=== PATIENT | female | born 1980 | race Caucasian/White ===

== ENCOUNTER 2016-10-10 06:43 | Inpatient (IN) | payer OTHER ==
[~2016-10-10] VITALS: Ht 182.9 cm; Wt 61.2 kg
[~2016-10-10 06:43] MED LIST: PREN1TAB80 PO; TYL3 PO
[2016-10-10] MEDS ORDERED: RINGERS SOLUTION,LACTATED 1,000 ML IV PRN (07:04)
[2016-10-10] MEDS ORDERED: RINGERS SOLUTION,LACTATED 1,000 ML IV SCH (07:04)
[2016-10-10] MEDS ORDERED: OXYTOCIN 30 UNITS/LACT RINGERS 500 ML IV ONE (07:04)
[2016-10-10] MEDS ORDERED: MORPHINE SULFATE/PF 0.5 MG/ML 10 ML AMP ONE (07:11)
[2016-10-10] MEDS ORDERED: MIDAZOLAM HCL 2 MG/2 ML VIAL ONE (07:12)
[2016-10-10] MEDS ORDERED: GUM MASTIC/STORAX/MSAL/ALCOHOL LIQUID 0.67 ML VIAL TP ONE (07:12)
[2016-10-10] MEDS ORDERED: FentaNYL CITRATE-PF 100 MCG/2 ML VIAL ONE (07:12)
[2016-10-10] MEDS ORDERED: METOCLOPRAMIDE HCL 5 MG/ML 2 ML VIAL IVP PRN (07:15)
[2016-10-10] MEDS ORDERED: CITRIC ACID/SODIUM CITRATE 30 ML SOLUTION UDCUP PO PRN (07:15)
[2016-10-10 07:19] VITALS: BP 116/72
[2016-10-10 07:36] LABS: BASOPHILS % (AUTO) 0.3 % (0.0-2.0); EOSINOPHILS % (AUTO) 0.5 % (1.0-6.0); HEMATOCRIT 40.6 % (36-46); HEMOGLOBIN 13.3 g/dL (12.0-16.0); LYMPHOCYTES % (AUTO) 20.7 % (22.0-44.0); MEAN CORPUSCULAR HEMOGLOBIN 29.9 pg (26.0-34.0); MEAN CORPUSCULAR HGB CONC 32.7 G/dL (31.0-37.0); MEAN CORPUSCULAR VOLUME 91 fL (80-100); MONOCYTES # (AUTO) 0.8 K/uL (0.1-1.0); MONOCYTES % (AUTO) 7.9 % (2.0-9.0); NEUTROPHILS # (AUTO) 6.8 K/uL (1.8-7.7); NEUTROPHILS % (AUTO) 70.6 % (40.0-70.0); RED BLOOD CELL COUNT(AUTO) 4.44 MIL/uL (4.00-5.20); RED CELL DISTRIBUTION WIDTH 14.3 % (11.5-14.5); WHITE BLOOD COUNT (AUTO) 9.6 K/uL (4.5-11.0)
[2016-10-10] MEDS: OXYGEN THERAPY IH SCH (08:00)
[2016-10-10] MEDS ORDERED: TRIAMCINOLONE ACETONIDE 40 MG/ML VIAL ONE (08:15)
[2016-10-10] MEDS ORDERED: FentaNYL CITRATE-PF 100 MCG/2 ML VIAL IVP PRN ×2 (08:45→09:00)
[2016-10-10] MEDS ORDERED: OXYGEN THERAPY IH SCH ×2 (08:45→09:00)
[2016-10-10] MEDS ORDERED: MORPHINE SULFATE 2 MG/ML SYRINGE IVP PRN (08:45)
[2016-10-10] MEDS ORDERED: DiphenhydrAMINE HCL 50 MG/ML VIAL IVP PRN ×2 (08:45→09:00)
[2016-10-10] MEDS ORDERED: ONDANSETRON HCL 4 MG/2 ML VIAL IVP PRN ×2 (08:45→09:00)
[2016-10-10] MEDS ORDERED: MORPHINE SULFATE 4 MG/ML SYRINGE IVP PRN (09:00)
[2016-10-10] MEDS ORDERED: OxyCODONE HCL/ACETAMINOPHEN 5-325 MG TABLET PO PRN ×2 (09:15)
[2016-10-10] MEDS ORDERED: METHYLERGONOVINE MALEATE 0.2 MG TABLET PO PRN (09:15)
[2016-10-10] MEDS ORDERED: LANOLIN 7 GM OINTMENT TP PRN (09:15)
[2016-10-10] MEDS ORDERED: IBUPROFEN 800 MG TABLET PO PRN (09:15)
[2016-10-10] MEDS: NALBUPHINE HCL 10 MG/ML VIAL IVP SCH ×2 (13:02→18:37)
[2016-10-10] MEDS: KETOROLAC TROMETHAMINE 30 MG/ML VIAL IVP SCH ×2 (15:07→20:56)
[2016-10-10] MEDS: DEXTROSE 5%-LACTATED RINGERS 1,000 ML IV SCH ×2 (15:53→23:47)
[2016-10-10] MEDS: CeFAZolin 2 GM/DEXTROSE 50 ML IV SCH ×2 (15:53→23:48)
[2016-10-10 18:29] LABS: RUBELLA SCREEN (IGG) IMMUNE (IMMUNE)
[2016-10-10] MEDS ORDERED: KETOROLAC TROMETHAMINE 60 MG/2 ML VIAL IM ONE (23:06)
[2016-10-10] MEDS ORDERED: DEXAMETHASONE SOD PHOS 4 MG/ML VIAL IVP ONE (23:06)
[2016-10-10] MEDS ORDERED: EPHEDrine SULFATE 50 MG/ML VIAL IM ONE (23:06)
[2016-10-10] MEDS ORDERED: ONDANSETRON HCL 4 MG/2 ML VIAL IVP ONE (23:06)
[2016-10-10] MEDS ORDERED: OXYTOCIN 10 UNITS/ML VIAL IM ONE (23:06)
[2016-10-11] MEDS: NALBUPHINE HCL 10 MG/ML VIAL IVP SCH (01:04)
[2016-10-11] MEDS: KETOROLAC TROMETHAMINE 30 MG/ML VIAL IVP SCH (03:05)
[2016-10-11 06:16] LABS: BASOPHILS % (AUTO) 0.2 % (0.0-2.0); EOSINOPHILS % (AUTO) 0 % (1.0-6.0); HEMATOCRIT 36.3 % (36-46); HEMOGLOBIN 12.1 g/dL (12.0-16.0); LYMPHOCYTES # (AUTO) 1.5 K/uL (1.0-4.8); LYMPHOCYTES % (AUTO) 13.4 % (22.0-44.0); MEAN CORPUSCULAR HEMOGLOBIN 30.7 pg (26.0-34.0); MEAN CORPUSCULAR HGB CONC 33.4 G/dL (31.0-37.0); MEAN CORPUSCULAR VOLUME 92 fL (80-100); MONOCYTES % (AUTO) 8.3 % (2.0-9.0); NEUTROPHILS % (AUTO) 78.1 % (40.0-70.0); RED BLOOD CELL COUNT(AUTO) 3.94 MIL/uL (4.00-5.20); RED CELL DISTRIBUTION WIDTH 14.4 % (11.5-14.5); WHITE BLOOD COUNT (AUTO) 11.5 K/uL (4.5-11.0)
[2016-10-11] MEDS: MAGNESIUM HYDROXIDE SUSPENSION 30 ML UDCUP PO PRN ×2 (08:27→21:34)
[2016-10-11] MEDS: SENNA/DOCUSATE SODIUM 187-50 MG TABLET PO PRN ×2 (08:28→21:34)
[2016-10-11] MEDS: IBUPROFEN 800 MG TABLET PO SCH ×3 (08:28→20:40)
[2016-10-11] MEDS: OXYGEN THERAPY IH SCH (20:40)
[2016-10-12] MEDS: IBUPROFEN 800 MG TABLET PO SCH ×3 (03:18→15:08)
[2016-10-12] MEDS: OXYGEN THERAPY IH SCH (07:32)
[2016-10-12] MEDS: SENNA/DOCUSATE SODIUM 187-50 MG TABLET PO PRN (08:46)
[2016-10-12] MEDS: MAGNESIUM HYDROXIDE SUSPENSION 30 ML UDCUP PO PRN (08:46)
[2016-10-12] MEDS ORDERED: HYDR-309 PO (15:20)
[2016-10-12] MEDS ORDERED: IBUP-1547 PO (15:21)
== END 2016-10-12 16:45 | disposition home or self-care (01) | DRG 766 ==
LOC: 4S 06:43 → OBSVTOIN 06:43 → 4S 08:58
PROVIDERS: ADMIT Specialist; ATTEND Specialist
PROC: 10D00Z1 Extraction of Products of Conception, Low, Open Approach (ICD-10-PCS; principal; 2016-10-10)
PROC: 0UB70ZZ Excision of Bilateral Fallopian Tubes, Open Approach (ICD-10-PCS; 2016-10-10)
PROC: 0U960ZZ Drainage of Left Fallopian Tube, Open Approach (ICD-10-PCS; 2016-10-10)
DX: O34.211 Maternal care for low transverse scar from previous cesarean delivery (principal); O09.523 Supervision of elderly multigravida, third trimester; O09.43 Supervision of pregnancy with grand multiparity, third trimester; O75.89 Other specified complications of labor and delivery; N83.8 Other noninflammatory disorders of ovary, fallopian tube and broad ligament; Z30.2 Encounter for sterilization; Z3A.38 38 weeks gestation of pregnancy; Z37.0 Single live birth
CPT/HCPCS: 86592; 86762; 86850; 86900; 86901; 87081; 87340; 88302; J0690; J1100; J1885; J2250; J2274; J2300; J2405; J2590; J2765; J3010; J3301; J3490